=== PATIENT | male | born 2000 | race Caucasian/White ===

== ENCOUNTER 2020-07-09 12:10 | Emergency (ER) | payer OTHER ==
[~2020-07-09] VITALS: Ht 180.3 cm; Wt 78.7 kg
[2020-07-09] MEDS ORDERED: IBUP-1022 PO (12:17)
[2020-07-09] MEDS ORDERED: LEVALBUTEROL HFA 45MCG/ACT 15 GM INHALER INH ONE (12:35)
[2020-07-09] MEDS ORDERED: NS 1,000 ML IV ONE (12:40)
[2020-07-09] MEDS ORDERED: KETOROLAC 30 MG/ML 1ML VIAL IV ONE (12:40)
[2020-07-09] MEDS ORDERED: ONDANSETRON 4MG/2ML VIAL IV ONE (12:40)
--- NOTE | 2020-07-09 13:02 | REP ---
INDICATION: chest pain. COMPARISON: None. FINDINGS: The superior mediastinal structures are midline. The cardiac silhouette is unremarkable in size, shape, and position. The diaphragmatic surfaces of the lungs are regular, and the costophrenic angles are clear. The pulmonary bejarano are clear. The imaged osseous structures are intact. IMPRESSION: There is no acute cardiopulmonary disease. <Electronically signed by [place] > 07/09/20 [id number]
[2020-07-09 13:21] LABS: BASO % 0.4 % (0.0-1.0); EOS # 0.2 10^3/uL (0.0-0.5); EOS % 1.8 % (0.0-3.0); HEMATOCRIT 45.2 % (42.0-52.0); HEMOGLOBIN 15.5 g/dl (13.5-17.5); LYMPH # 1.5 10^3/uL (1.5-5.0); LYMPH % 14.1 % (24.0-44.0); MEAN CORPUSCULAR HEMOGLOBIN 30.5 pg (27.0-33.0); MEAN CORPUSCULAR HGB CONC 34.3 g/dl (32.0-36.5); MEAN CORPUSCULAR VOLUME 88.8 fl (80.0-96.0); MONO # 0.9 10^3/uL (0.0-0.8); MONO % 8.4 % (2.0-8.0); NEUTROPHILS # 8.2 10^3/uL (1.5-8.5); NEUTROPHILS % 75.1 % (36.0-66.0); PLATELET COUNT, AUTOMATED 200 10^3/uL (150-450); RED BLOOD COUNT 5.09 10^6/uL (4.30-6.10)
[2020-07-09 13:57] LABS: ALBUMIN 4.2 GM/DL (3.2-5.2); ALT/SGPT 23 U/L (12-78); BILIRUBIN,DIRECT 0.3 MG/DL (0.0-0.2); BILIRUBIN,TOTAL 0.9 MG/DL (0.2-1.0); CK-MB VALUE MASS < 1.0 NG/ML (<3.6); CPK CREATINE PHOSPHOKINASE 151 U/L (39-308); MB/CK RELATIVE INDEX 0.66 (< OR =4); TOTAL PROTEIN 8.1 GM/DL (6.4-8.2); TROPONIN I < 0.02 NG/ML (< 0.10)
[2020-07-09] MEDS ORDERED: methylPREDNISolone 125MG 2ML VIAL IV ONE ×2 (14:40→14:50)
[2020-07-09] MEDS ORDERED: ALB2.5NEB NEB (15:03)
[2020-07-09 15:31] VITALS: BP 110/68
--- NOTE | 2020-07-10 19:58 | ECGEPIP ---
[facility] - ED Test Date: 2020-07-09 Pat Name: RENUKA HOLLAND Department: Room: - Gender: Male Charrer: ORION : 2000 Requested By: GEMINI Monk PA-C Order Number: [id number] Reading MD: Antoinette Barton Measurements Intervals Maryneal Rate: 91 P: 76 ME: 148 QRS: 48 QRSD: 86 T: 27 QT: 362 QTc: 445 Interpretive Statements Normal sinus rhythm Nonspecific ST abnormality No prior Electronically Signed on 07-10-2020 19:58:14 EDT by Antoinette Barton
== END 2020-07-09 15:32 | disposition home or self-care (01) ==
LOC: M ED 12:10
DX: J00 Acute nasopharyngitis [common cold] (principal); J06.9 Acute upper respiratory infection, unspecified; B34.9 Viral infection, unspecified
CPT/HCPCS: 71046; 80047; 80076; 82550; 82553; 84484; 85025; 85379; 87798; 93005; 94640; 96361; 96374; 96375; 99284; J1885; J2405; J2930

== ENCOUNTER → 2021-06-29 | Outpatient (CLI) | payer OTHER ==
[~2021-06-29] MED LIST: ALB2.5NEB NEB; IBUP-1022 PO
[2021-06-29 13:54] LABS: INR 1.25; PROTHROMBIN TIME 16.1 SECONDS (12.7-14.5)
== END ==
LOC: M LAB 12:13
PROVIDERS: ATTEND Physician Assistant
DX: Z01.812 Encounter for preprocedural laboratory examination (principal)

== ENCOUNTER 2021-08-01 11:37 | Emergency (ER) | payer OTHER ==
[~2021-08-01] VITALS: Ht 182.9 cm; Wt 102.1 kg
[2021-08-01] MEDS ORDERED: ONDA4TAB6 PO (13:45)
[2021-08-01 13:56] VITALS: BP 117/65
== END 2021-08-01 13:58 | disposition home or self-care (01) ==
LOC: M ED 11:37
DX: S09.90XA Unspecified injury of head, initial encounter (principal); S13.9XXA Sprain of joints and ligaments of unspecified parts of neck, initial encounter; V49.49XA Driver injured in collision with other motor vehicles in traffic accident, initial encounter; Y92.410 Unspecified street and highway as the place of occurrence of the external cause; Z77.098 Contact with and (suspected) exposure to other hazardous, chiefly nonmedicinal, chemicals

== ENCOUNTER 2021-11-23 14:14 | Emergency (ER) | payer OTHER ==
[~2021-11-23] VITALS: Ht 182.9 cm; Wt 101.4 kg
[~2021-11-23 14:14] MED LIST changes: +ONDA4TAB6 PO
[2021-11-23 18:24] LABS: BASO % 0.5 % (0.0-1.0); EOS # 0.1 10^3/uL (0.0-0.5); EOS % 1.1 % (0.0-3.0); HEMATOCRIT 46.6 % (42.0-52.0); HEMOGLOBIN 16.3 g/dl (13.5-17.5); LYMPH # 2.6 10^3/uL (1.5-5.0); LYMPH % 31.9 % (24.0-44.0); MEAN CORPUSCULAR HEMOGLOBIN 29.5 pg (27.0-33.0); MEAN CORPUSCULAR VOLUME 84.4 fl (80.0-96.0); MONO # 0.6 10^3/uL (0.0-0.8); NEUTROPHILS # 4.8 10^3/uL (1.5-8.5); NEUTROPHILS % 59.1 % (36.0-66.0); PLATELET COUNT, AUTOMATED 222 10^3/uL (150-450); RED BLOOD COUNT 5.52 10^6/uL (4.30-6.10); WHITE BLOOD COUNT 8.1 10^3/uL (4.0-10.0)
[2021-11-23 18:50] LABS: CK-MB VALUE MASS < 1.0 NG/ML (<3.6); CPK CREATINE PHOSPHOKINASE 129 U/L (39-308); MB/CK RELATIVE INDEX 0.78 (< OR =4)
[2021-11-23 19:09] LABS: BLOOD UREA NITROGEN 11 MG/DL (7-18); CALCIUM LEVEL 9.5 MG/DL (8.5-10.1); CARBON DIOXIDE LEVEL 24 MEQ/L (21-32); CHLORIDE LEVEL 107 MEQ/L (98-107); CREATININE FOR GFR 0.87 MG/DL (0.70-1.30); GLOMERULAR FILTRATION RATE > 60.0 (>60); GLUCOSE, FASTING 74 MG/DL (70-100); SODIUM LEVEL 137 MEQ/L (136-145)
[2021-11-23] MEDS ORDERED: HOLTER MONITOR XX (21:34)
[2021-11-23 21:55] VITALS: BP 131/78
== END 2021-11-23 21:56 | disposition home or self-care (01) ==
LOC: M ED 14:14
DX: R00.2 Palpitations (principal); R00.1 Bradycardia, unspecified; R51.9 Headache, unspecified; Z90.49 Acquired absence of other specified parts of digestive tract; F17.290 Nicotine dependence, other tobacco product, uncomplicated